=== PATIENT | female | born 1960 ===

== ENCOUNTER → 2025-07-24 12:34 | Outpatient (REF) | payer BC, SELFPAY | LOC: RCS 12:34 | PROVIDERS: ATTENDING PHYSICIAN Nuclear Medicine Nuclear Cardiology; FAMILY PHYSICIAN Internal Medicine | DX: R00.2 Palpitations (principal); R55 Syncope and collapse; E78.5 Hyperlipidemia, unspecified; I25.10 Atherosclerotic heart disease of native coronary artery without angina pectoris; R93.1 Abnormal findings on diagnostic imaging of heart and coronary circulation | CPT/HCPCS: 93017; 93350 ==